=== PATIENT | female | born 1960 | race Caucasian/White ===

== ENCOUNTER 2024-04-10 16:01 | Emergency (ER) | payer SELFPAY ==
[2024-04-10 16:12] VITALS: BP 137/76
[2024-04-10 16:41] LABS: % Basophils 0.8 % (0-2); % Immature Granulocytes 0.4 % (0-0.5); % Lymphocytes 19.4 % (20.5-51.1); % Monocytes 9.8 % (1.7-9.3); % Neutrophils 66.6 % (42.2-75.2); Absolute Basophils 0.1 10^3/uL (0-0.2); Absolute Eosinophils 0.2 10^3/uL (0-0.7); Absolute Lymphocytes 1.5 10^3/uL (1.2-3.4); Absolute Monocytes 0.8 10^3/uL (0.1-0.6); Absolute Neutrophils 5.2 10^3/uL (1.4-6.5); Hematocrit 36.6 % (37.0-47.0); Hemoglobin 12.1 g/dL (12.0-16.0); Mean Corp Hgb Conc. 33.1 g/dL (33.0-37.0); Mean Corpuscular Hgb 29.4 pg (27.0-31.0); Mean Corpuscular Volume 89.1 fL (81.0-99.0); Mean Platelet Volume 9.9 fL (7.4-10.4); Nucleated Red Blood Cells % 0 %; Platelet Count 191 10^3/uL (130-400); Red Blood Cell Count 4.11 10^6/uL (4.20-5.40); Red Cell Dist. Width 13.2 % (11.5-14.5); White Blood Cell Count 7.8 10^3/uL (4.8-10.8)
[2024-04-10 16:56] LABS: ALT (SGPT) 22 U/L (0-35); AST (SGOT) 33 U/L (14-36); Alkaline Phosphatase 64 U/L (38-126); Blood Urea Nitrogen 24 mg/dl (7-17); Calcium 9.2 mg/dl (8.4-10.2); Carbon Dioxide 24 mmol/L (22-30); Chloride 108 mmol/L (98-107); Glucose 73 mg/dl (70-99); Potassium 3.5 mmol/L (3.5-5.1); Sodium 140 mmol/L (135-145); Total Bilirubin 0.6 mg/dl (0.2-1.3); Total Protein 6.2 g/dl (6.3-8.2); eGFR > 60.00
[2024-04-10 17:08] LABS: Troponin I 0.013 ng/ml
[2024-04-10 20:39] VITALS: BMI 23.2
[2024-04-10 20:51] LABS: Urine Albumin Trace (Neg - Trace); Urine Bilirubin Negative (Negative); Urine Character Slightly Cloudy (Clear); Urine Color Yellow; Urine Glucose Negative (Negative); Urine Ketone 3+ (Negative); Urine Leukocyte 2+ (Negative); Urine Nitrite Positive (Negative); Urine Occult Blood 1+ (Negative); Urine Specific Gravity 1.025 (<1.030); Urine Urobilinogen Negative (Neg - 1+)
[2024-04-10 20:57] LABS: Urine Squamous Cell 16-20 /LPF (Few)
[2024-04-10 20:59] LABS: Urine Bacteria Many (Negative); Urine White Cell 30-40 /HPF (0-5)
[2024-04-10 21:02] LABS: Amphetamines Negative (Negative); Barbiturates Negative (Negative); Benzodiazepines Negative (Negative); Buprenorphine Negative (Negative); Cocaine Negative (Negative); Marijuana Negative (Negative); Methadone Negative (Negative); Methamphetamines Positive (Negative); Opiates Negative (Negative); Phencyclidine Negative (Negative); Tricyclic Antidepressants Positive (Negative)
[2024-04-10 21:09] LABS: Troponin I 0.017 ng/ml
--- NOTE | 2024-04-10 21:25 | ED.GENMED ---
History of Present Illness
<Brittany Meléndez NP - Last Filed: 04/14/24 00:46>
General
Chief Complaint: Chest Pain
Source: patient
Exam Limitations: none
Time Seen by Provider: 04/10/24 19:03
Nursing documentation reviewed up to this point in time: agreed with
Travel History
Have you had any contact with someone who has COVID-19?: No
Do you have any symptoms of coronavirus? Fever > 100 degrees, chills, cough, shortness of breath, sore throat, loss of taste or smell, muscle aches, or headache?: No
History of Present Illness
History of Present Illness:
Patient states she was arrested last PM after she violated a PFA order. States she spent the night in long-term and then was released after her court appearance today. SHe was given a bus pass but states she took the bus in the wrong direction. After
getting off bus she was trying to find someone to help her get back to [place]. States she then developed chest pain. 911 called by a business that she entered, Transported to ED for eval. Denies any chest pain now. No prior history of same.
Past History
<Brittany Meléndez FINANCIAL AIDS OFFICER - Last Filed: 04/14/24 00:46>
Past History
ED Past Medical History: None
Review of Systems
<Brittany Meléndez FINANCIAL AIDS OFFICER - Last Filed: 04/14/24 00:46>
Review of Systems
Allergies reviewed?: Yes
All Other Systems: ROS reviewed and negative except as documented in HPI and ROS
Constitutional: Reports no symptoms
EENT: Reports no symptoms
Respiratory: Reports no symptoms
Cardiac: Reports chest pain (CP [employer]ER)
ABD/GI: Reports no symptoms
: Reports no symptoms
Musculoskeletal: Reports no symptoms
Skin: Reports no symptoms
Neurological: Reports no symptoms
Psychiatric: Reports no symptoms
Phy Exam
<Brittany Meléndez FINANCIAL AIDS OFFICER - Last Filed: 04/14/24 00:46>
General Physical Exam
General Presentation: well appearing and no apparent distress
General age: appears stated age
General Skin: warm and dry
General Habitus: normal
General Mental: alert
Cardiovascular Exam
Cardiovascular Exam: regular rate/rhythm and no edema
Pulmonary Exam
Pulmonary Exam: lungs clear and no respiratory distress
Gastrointestinal Exam
Gastrointestinal Exam: normal bowel sounds, non tender and soft
Musculoskeletal Exam
Musculoskeletal Exam: full ROM and neuro vasc intact
Skin Exam
Skin Exam: normal color, warm/dry and no rash
Psychiatric Exam
Psychiatric Exam: normal mood/affect
Scores
<Brittany Meléndez FINANCIAL AIDS OFFICER - Last Filed: 04/14/24 00:46>
Heart Score for Chest Pain Patients
STEMI patient?: Not applicable
Course
<Brittany Meléndez FINANCIAL AIDS OFFICER - Last Filed: 04/14/24 00:46>
Orders/Labs/Results
Orders:
Orders
04/10/24 16:09
Electrocardiogram (*1) Urgent
Reason for Study: Chest Pain
04/10/24 16:10
EKG- Treatment ONCE
04/10/24 16:29
Complete Blood Count/With Diff Urgent
Comprehensive Metabolic Panel Urgent
Troponin I Urgent
04/10/24 20:32
Fentanyl, Urine Urgent
Troponin I Urgent
Urinalysis Reflex To Culture Urgent
Date Specimen was Collected: 04/10/24
Time Specimen was Collected: 20:15
Urine Drug Abuse Screen Urgent
Date Specimen was Collected: 04/10/24
Time Specimen was Collected: 20:15
Urine Microscopic Reflex Cult Urgent
Urine Culture Urgent
TESSA Source: U
Specimen Description:
Date Specimen was Collected: 04/10/24
Time Specimen was Collected: 20:15
04/10/24 21:05
Cephalexin Monohydrate [Keflex] 500 mg PO NOW STA
Abnormal Lab Results
04/10/24 04/10/24
16:29 20:32
RBC 4.11 L 10^6/uL
(4.20-5.40)
Hct 36.6 L %
(37.0-47.0)
Absolute Monos (auto) 0.8 H 10^3/uL
(0.1-0.6)
Lymphocytes % 19.4 L %
(20.5-51.1)
Monocytes % 9.8 H %
(1.7-9.3)
Chloride 108 H mmol/L
(98-107)
BUN 24 H mg/dl
(7-17)
Total Protein 6.2 L g/dl
(6.3-8.2)
Urine Ketones 3+ A
(Negative)
Ur Occult Blood Reflex 1+ A
(Negative)
Urine Nitrite (Reflex) Positive A
(Negative)
Leukocyte Esterase Rfl 2+ A
(Negative)
Urine RBC 3-6 A /HPF
(0-2)
Urine WBC (Reflex) 30-40 A /HPF
(0-5)
Urine Bacteria (Reflex) Many A
(Negative)
Ur Tricyclics Screen Positive H
(Negative)
U Methamphetamines Scrn Positive H
(Negative)
04/10/24 16:29
04/10/24 16:29
Vital Signs
Initial and Last Documented VS:
Initial Vital Signs
Temp Pulse Resp BP Pulse Ox
98.2 F 94 16 137/76 94
04/10/24 16:12 04/10/24 16:12 04/10/24 16:12 04/10/24 16:12 04/10/24 16:12
Last Documented Vital Signs
Temp Pulse Resp BP Pulse Ox
98.2 F 78 18 123/78 98
04/10/24 16:12 04/10/24 21:56 04/10/24 21:56 04/10/24 21:56 04/10/24 21:56
<Tolu Delgado PA-C - Last Filed: 04/14/24 07:17>
Orders/Labs/Results
Orders:
Orders
04/10/24 16:09
Electrocardiogram (*1) Urgent
Reason for Study: Chest Pain
04/10/24 16:10
EKG- Treatment ONCE
04/10/24 16:29
Complete Blood Count/With Diff Urgent
Comprehensive Metabolic Panel Urgent
Troponin I Urgent
04/10/24 20:32
Fentanyl, Urine Urgent
Troponin I Urgent
Urinalysis Reflex To Culture Urgent
Date Specimen was Collected: 04/10/24
Time Specimen was Collected: 20:15
Urine Drug Abuse Screen Urgent
Date Specimen was Collected: 04/10/24
Time Specimen was Collected: 20:15
Urine Microscopic Reflex Cult Urgent
Urine Culture Urgent
TESSA Source: U
Specimen Description:
Date Specimen was Collected: 04/10/24
Time Specimen was Collected: 20:15
04/10/24 21:05
Cephalexin Monohydrate [Keflex] 500 mg PO NOW STA
Abnormal Lab Results
04/10/24 04/10/24
16:29 20:32
RBC 4.11 L 10^6/uL
(4.20-5.40)
Hct 36.6 L %
(37.0-47.0)
Absolute Monos (auto) 0.8 H 10^3/uL
(0.1-0.6)
Lymphocytes % 19.4 L %
(20.5-51.1)
Monocytes % 9.8 H %
(1.7-9.3)
Chloride 108 H mmol/L
(98-107)
BUN 24 H mg/dl
(7-17)
Total Protein 6.2 L g/dl
(6.3-8.2)
Urine Ketones 3+ A
(Negative)
Ur Occult Blood Reflex 1+ A
(Negative)
Urine Nitrite (Reflex) Positive A
(Negative)
Leukocyte Esterase Rfl 2+ A
(Negative)
Urine RBC 3-6 A /HPF
(0-2)
Urine WBC (Reflex) 30-40 A /HPF
(0-5)
Urine Bacteria (Reflex) Many A
(Negative)
Ur Tricyclics Screen Positive H
(Negative)
U Methamphetamines Scrn Positive H
(Negative)
04/10/24 16:29
04/10/24 16:29
Vital Signs
Initial and Last Documented VS:
Initial Vital Signs
Temp Pulse Resp BP Pulse Ox
98.2 F 94 16 137/76 94
04/10/24 16:12 04/10/24 16:12 04/10/24 16:12 04/10/24 16:12 04/10/24 16:12
Last Documented Vital Signs
Temp Pulse Resp BP Pulse Ox
98.2 F 78 18 123/78 98
04/10/24 16:12 04/10/24 21:56 04/10/24 21:56 04/10/24 21:56 04/10/24 21:56
<Brittany Meléndez FINANCIAL AIDS OFFICER - Last Filed: 04/14/24 00:46>
*Pulse Oximetry
Patient hypoxic: no
*EKG
Interpretation: normal
Comparison EKG: no comparison EKG present
Rate: normal
Rhythm: sinus
*Critical Care Note
Total Time (30-74mins, 75-104mins- exclusive of procedures): Not Applicable
<Brittany Meléndez NP - Last Filed: 04/14/24 00:46>
Update Note
Update Note:
Labs reviewed. UDS +meth. SHe has denied any drug use. QTc 490 noted. Discussed with patient. Recommend follow up with PCP, repeat EKG. Refrain from drug use.
<Tolu Delgado PA-C - Last Filed: 04/14/24 07:17>
Update Note
Update Note:
Labs reviewed. UDS +meth. SHe has denied any drug use. QTc 490 noted. Discussed with patient. Recommend follow up with PCP, repeat EKG. Refrain from drug use.
April 14 at 7:17 AM: Urine culture shows greater than 100,000 colony-forming units of Klebsiella. Patient placed on Keflex which is sensitive. No indication for any change
ED Attending Note
<Brittany Meléndez NP - Last Filed: 04/14/24 00:46>
-
Portions of this chart may have been created with voice recognition software.� Occasional wrong word or��sound alike� substitutions may have occurred due to the inherent limitations of voice recognition software.
Discharge Plan
Departure
Patient Disposition: Home (Routine Discharge)
Date of Disposition: 04/10/24
Time of Disposition: 21:26
Patient with high blood pressure during this ER visit?: No
Condition: Good
Covid-19: Not Applicable
Discharge Problem:
Chest pain
Instructions: Urinary tract infections in adults, Chest Pain That Is Not Caused by the Heart (DC)
Prescriptions:
New
cephalexin 500 mg capsule
500 mg PO BID 7 Days Qty: 14 0RF
Referrals:
Kiesha Go, DO [Family Provider] - Tomorrow
Interventions
Interventions:
*Risk Screen - Suicide Last Done: 04/10/24 20:26
*General Assessment Last Done: 04/10/24 20:26
*Neglect/Abuse Screening Last Done: 04/10/24 20:26
ED- Fall Risk Assessment Last Done: 04/10/24 20:39
*ED COVID-19 Vaccine History Last Done: 04/10/24 20:26
*Nursing Disposition Last Done: 04/10/24 21:57
ED- Cardiac Assessment Last Done: 04/10/24 20:39
Discharge Date and Time
Discharge Date/Time: 04/10/24 21:57
Print Language: MONEGASQUE
[2024-04-10 21:28] LABS: Fentanyl, Urine Negative (Negative)
[2024-04-10] MEDS: KEFLEX 500 MG PO (21:35)
[2024-04-10 21:56] VITALS: BP 123/78
== END 2024-04-10 21:57 | disposition home or self-care (01) ==
LOC: EMR 16:01
PROVIDERS: Emergency Medicine; Nurse Practitioner; EMERGENCY PHYSICIAN Emergency Medicine; FAMILY PHYSICIAN Family Medicine
DX: R07.89 Other chest pain (principal)
CPT/HCPCS: 99283; 80053; 80306; 80307; 81003; 81015; 84484; 85025; 87077; 87086; 87186; 93005